=== PATIENT | female | born 1970 | race African-American/Black ===

== ENCOUNTER 2017-05-31 11:46 | Inpatient (IN) | payer OTHER ==
[2017-05-31 13:04] VITALS: BMI 38.9
--- NOTE | 2017-05-31 14:40 | HP ---
CIWA Score - CIWA Score Nausea/Vomitin-Mild Nausea/No Vomiting Muscle Tremors: 4-Moderate,w/Arms Extend Anxiety: 3 Agitation: 4-Moderately Restless Paroxysmal Sweats: 3 Orientation: 0-Oriented Tacttile Disturbances: 0-None Auditory Disturbances: 0-None Visual Disturbances: 0-None Headache: 1-Very Mild CIWA-Ar Total Score: 16 Admission ROS BHS - HPI Chief Complaint: I need to get off the alcohol. Allergies/Adverse Reactions: Allergies Allergy/AdvReac Type Severity Reaction Status Date / Time No Known Allergies Allergy Verified 05/31/17 13:26 History of Present Illness: pt is a 46yr old female with a history of alcohol dependence seeking detox for treatment. Exam Limitations: No Limitations - Ebola screening Have you traveled outside of the country in the last 21 days: No Have you had contact with anyone from an Ebola affected area: No Have you been sick,other than usual withdrawal symptoms: No Do you have a fever: No - Review of Systems Constitutional: Diaphoresis, Loss of Appetite, Night Sweats, Changes in sleep EENT: reports: Tearing Respiratory: reports: No Symptoms reported Cardiac: reports: No Symptoms Reported, Syncope GI: reports: Nausea, Indigestion, Other (anal hemrroids.) : reports: No Symptoms Reported Musculoskeletal: reports: No Symptoms Reported Integumentary: reports: Flushing, Sweating Neuro: reports: Headache, Tingling, Tremors Endocrine: reports: Excessive Sweating, Flushing, Intolerance to Cold, Intolerance to Heat Hematology: reports: No Symptoms Reported Psychiatric: reports: Judgement Intact, Orientated x3, Agitated, Anxious Other Systems: Reviewed and Negative Patient History - Patient Medical History Hx Anemia: Yes (maybe d/t gastric bypass) Hx Asthma: Yes Hx Chronic Obstructive Pulmonary Disease (COPD): No Hx Cancer: No Hx Cardiac Disorders: No Hx Congestive Heart Failure: No Hx Hypertension: Yes Hx Hypercholesterolemia: No Hx Pacemaker: No HX Cerebrovascular Accident: No Hx Seizures: No Hx Dementia: No Hx Diabetes: No Hx Gastrointestinal Disorders: No Hx Liver Disease: No Hx Genitourinary Disorders: No Hx Sexually Transmitted Disorders: No Hx Renal Disease (ESRD): No Hx Thyroid Disease: No Hx Human Immunodeficiency Virus (HIV): No (negative) Hx Hepatitis C: No (negative) Hx Depression: Yes Hx Suicide Attempt: No (denies) Hx Bipolar Disorder: No Hx Schizophrenia: No - Patient Surgical History Past Surgical History: Yes Hx Abdominal Surgery: Yes (gastric bypass-2009) - PPD History Previous Implant?: Yes Documented Results: Negative w/o proof Implanted On Prior R Admission?: No PPD to be Administered?: Yes - Reproductive History Patient is a Female of Child Bearing Age (11 -55 yrs old): No LMP comment: 2016 Patient : No - Smoking Cessation Smoking history: Never smoked Have you smoked in the past 12 months: No Hx Chewing Tobacco Use: No Initiated information on smoking cessation: No - Substance & Tx. History Hx Alcohol Use: Yes Hx Substance Use: No Substance Use Type: Alcohol Hx Substance Use Treatment: Yes (last detox at [place] 2015) - Substances Abused Alcohol Route: Oral Frequency: Daily Amount used: vodka(1-2 liter) Age of first use: 15 Date of Last Use: 05/31/17 Family Disease History - Family Disease History Family History: Denies Admission Physical Exam S - Vital Signs Vital Signs: Vital Signs - 24 hr 05/31/17 13:03 Temperature 98.2 F Pulse Rate 79 Respiratory 19 Rate Blood Pressure 142/96 - Physical General Appearance: Yes: Appropriately Dressed, Moderate Distress, Tremorous, Irritable, Sweating, Anxious HEENTM: Yes: Normal Voice, Nasal Congestion Respiratory: Yes: Lungs Clear, Normal Breath Sounds, No Respiratory Distress Neck: Yes: No masses,lesions,Nodules Breast: Yes: Within Normal Limits Cardiology: Yes: Regular Rhythm, Regular Rate, S1, S2 Abdominal: Yes: Normal Bowel Sounds, Non Tender, Soft Genitourinary: Yes: Within Normal Limits Back: Yes: Normal Inspection Musculoskeletal: Yes: full range of Motion Extremities: Yes: Normal Capillary Refill Neurological: Yes: Fully Oriented, Alert, Normal Response Integumentary: Yes: Normal Color Lymphatic: Yes: Within Normal Limits - Diagnostic (1) Alcohol dependence with uncomplicated withdrawal Current Visit: Yes Status: Chronic (2) Hypertension Current Visit: Yes Status: Chronic Qualifiers: Hypertension type: essential hypertension Qualified Code(s): I10 - Essential (primary) hypertension (3) H/O gastric bypass Current Visit: No Status: Chronic (4) Hyperlipidemia Current Visit: Yes Status: Chronic Qualifiers: Hyperlipidemia type: pure hypercholesterolemia Qualified Code(s): E78.00 - Pure hypercholesterolemia, unspecified; E78.0 - Pure hypercholesterolemia (5) Asthma Current Visit: Yes Status: Chronic Qualifiers: Asthma severity: mild intermittent Asthma complication type: uncomplicated Qualified Code(s): J45.20 - Mild intermittent asthma, uncomplicated Cleared for Admission BHS - Detox or Rehab [facility] Level of Care: Medically Managed Detox Regimen/Protocol: Librium BHS Breath Alcohol Content Breath Alcohol Content: 0 Urine Pregancy Test - Result Urine Test Results: Negative- NO Line Present Urine Drug Screen - Results Drug Screen Negative: Yes
[2017-05-31] MEDS ORDERED: MAG HYDROX/AL HYDROX/SIMETH 30 ML UNIT-DOSE CUP PO PRN (14:47)
[2017-05-31] MEDS ORDERED: P-EPHED 60MG/TRIPROLIDI 2.5MG TABLET PO PRN (14:47)
[2017-05-31] MEDS ORDERED: ACETAMINOPHEN 325 MG TABLET (FP) PO PRN (14:47)
[2017-05-31] MEDS ORDERED: MENTHOL/PHENOL 1 EACH UD MM PRN (14:47)
[2017-05-31] MEDS ORDERED: chlordiazePOXIDE HCL 25 MG CAPSULE PO PRN (14:47)
[2017-05-31] MEDS ORDERED: MAGNESIUM HYDROX 2400MG/30ML ORAL SUSPENSION 30 ML CUP PO PRN (14:47)
[2017-05-31] MEDS ORDERED: MAGNESIUM CITRATE 300 ML BOTTLE PO PRN (14:47)
[2017-05-31] MEDS ORDERED: IBUPROFEN 400 MG TABLET (FP) PO PRN (14:47)
[2017-05-31] MEDS ORDERED: guaiFENesin/D-METHORPHAN HB 10 ML UNIT-DOSE CUPS PO PRN (14:47)
[2017-05-31] MEDS ORDERED: LOPERAMIDE HCL 2 MG CAPSULE PO PRN (14:47)
[2017-05-31] MEDS ORDERED: hydrOXYzine PAMOATE 50 MG CAPSULE (FP) PO PRN (14:47)
[2017-05-31] MEDS ORDERED: ALBUTEROL SO4 6.7 GM HFA INHALER IH PRN (14:49)
[2017-05-31] MEDS ORDERED: chlordiazePOXIDE HCL 25 MG CAPSULE PO ONE (15:53)
[2017-05-31 17:02] LABS: MCH 33.2 pg (25.7-33.7); MEAN CELL VOLUME 100.5 fl (80-96); MEAN PLT VOLUME 9.7 fl (7.5-11.1); PLATELET COUNT 202 K/MM3 (134-434); RDW 16.6 % (11.6-15.6); WHITE BLOOD COUNT 4.3 K/mm3 (4.0-10.0)
[2017-05-31 17:08] LABS: URINE APPEARANCE SLCLOUDY; URINE BLOOD NEGATIVE (NEGATIVE); URINE COLOR AMBER; URINE GLUCOSE (UA) NEGATIVE (NEGATIVE); URINE KETONE 1+ (NEGATIVE); URINE LEUK ESTERASE NEGATIVE (NEGATIVE); URINE NITRITE NEGATIVE (NEGATIVE); URINE UROBILINOGEN 4.0 E.U/dl mg/dL (0.2-1.0)
[2017-05-31] MEDS: chlordiazePOXIDE HCL 25 MG CAPSULE PO SCH ×2 (17:14→22:09)
[2017-05-31 17:16] LABS: URINE PROTEIN 2+ (NEGATIVE)
[2017-05-31 17:23] LABS: URINE BACTERIA RARE /hpf (NONE SEEN); URINE HYALINE CAST 6 /lpf; URINE MUCUS MANY; URINE RBC 3 /hpf (0-3); URINE WBC 3 /hpf (3-5)
[2017-05-31 17:24] LABS: ALBUMIN 4.2 g/dl (3.4-5.0); ANION GAP 16 (8-16); CALCIUM 9.8 mg/dL (8.5-10.1); CO2 23 mmol/L (21-32); GLUCOSE,RANDOM 97 mg/dL (74-106)
[2017-05-31 17:27] LABS: ALK PHOS 208 U/L (45-117); BILIRUBIN,TOTAL 2.2 mg/dL (0.2-1.0); CREATININE 0.9 mg/dL (0.55-1.02); SGPT/ALT 135 U/L (12-78); TOT PROT 7.9 g/dl (6.4-8.2)
[2017-05-31 17:35] LABS: SGOT/AST 426 U/L (15-37)
[2017-05-31] MEDS: diphenhydrAMINE HCL 50 MG CAPSULE PO PRN (22:10)
[2017-05-31] MEDS: THIAMINE HCL 100 MG TABLET (FP) PO SCH (22:10)
[2017-06-01] MEDS: chlordiazePOXIDE HCL 25 MG CAPSULE PO SCH ×4 (05:36→22:10)
--- NOTE | 2017-06-01 08:31 | CONSULT ---
[facility] Psychiatric Consult - Data Date of interview: 06/01/17 Admission source: [facility] Identifying data: This is 46 years old female with no psychiatric hospitalization history intoxicated with: Alcohol Substance Abuse History: - Smoking Cessation. Smoking history: Never smoked. Have you smoked in the past 12 months: No. Hx Chewing Tobacco Use: No. Initiated information on smoking cessation: No. - Substance & Tx. History. Hx Alcohol Use: Yes. Hx Substance Use: No. Substance Use Type: Alcohol. Hx Substance Use Treatment: Yes (last detox at [place] 2015). - Substances Abused. Alcohol. Route: Oral. Frequency: Daily. Amount used: vodka(1-2 liter). Age of first use: 15. Date of Last Use: 05/31/17 Medical History: Asthma, Hyperlipidemia, HTN, Gastric Bypass Hisotry on 2009 Psychiatric History: Denies Physical/Sexual Abuse/Trauma History: Denies Additional Comment: Observation. Detox Unit Care Protocol Mental Status Exam - Mental Status Exam Alert and Oriented to: Person Cognitive Function: Fair Patient Appearance: Unkempt Mood: Sad Affect: Flat Patient Behavior: Sedated Speech Pattern: Delayed Voice Loudness: Mildly Soft/Quiet Thought Process: Circumstantial Thought Disorder: Being Controlled Hallucinations: Denies Suicidal Ideation: Denies Homicidal Ideation: Denies Insight/Judgement: Fair Sleep: Difficulty falling asleep Appetite: Weight gain Muscle strength/Tone: Mild Hypotonicity Gait/Station: Shuffling Additional Comments: Observation. Detox Unit Care Protocol Psychiatric Findings - Problem List (Sieper 1, 2,3) (1) Alcohol dependence with uncomplicated withdrawal Current Visit: Yes Status: Chronic (2) Alcohol induced insomnia Current Visit: Yes Status: Acute (3) Alcohol-induced mood disorder Current Visit: Yes Status: Suspected - Initial Treatment Plan Initial Treatment Plan: Observation. Detox Unit Care Protocol
--- NOTE | 2017-06-01 09:23 | PN ---
S CIWA - CIWA Score Nausea/Vomitin Muscle Tremors: 4-Moderate,w/Arms Extend Anxiety: 4-Mod. Anxious/Guarded Agitation: 4-Moderately Restless Paroxysmal Sweats: 3 Orientation: 0-Oriented Tacttile Disturbances: 1-Very Mild Itch/Numbness Auditory Disturbances: 0-None Visual Disturbances: 0-None Headache: 1-Very Mild CIWA-Ar Total Score: 20 BHS Progress Note (SOAP) Subjective: nausea, sweats, interrupted sleep, anxiety, tremors Objective: 06/01/17 09:21 Vital Signs - 24 hr 05/31/17 05/31/17 05/31/17 13:03 18:10 23:00 Temperature 98.2 F 98.8 F 99.1 F Pulse Rate 79 96 H 113 H Respiratory 19 20 18 Rate Blood Pressure 142/96 126/97 142/101 06/01/17 06/01/17 06/01/17 00:30 03:47 06:41 Temperature 97.5 F L Pulse Rate 79 Respiratory 18 18 18 Rate Blood Pressure 139/90 Laboratory Tests 05/31/17 05/31/17 05/31/17 15:00 15:00 15:00 WBC 4.3 RBC 3.70 Hgb 12.3 Hct 37.2 MCV 100.5 H MCH 33.2 MCHC 33.0 RDW 16.6 H Plt Count 202 MPV 9.7 Sodium 135 L Potassium 3.7 Chloride 96 L Carbon Dioxide 23 Anion Gap 16 BUN 7 Creatinine 0.9 Creat Clearance w eGFR > 60 Random Glucose 97 Calcium 9.8 Total Bilirubin 2.2 H AST 426 H ALT 135 H Alkaline Phosphatase 208 H Total Protein 7.9 Albumin 4.2 Urine Color Urine Appearance Urine pH Ur Specific [place] Urine Protein Urine Glucose (UA) Urine Ketones Urine Blood Urine Nitrite Urine Bilirubin Urine Urobilinogen Urine RBC Urine WBC Ur Epithelial Cells Urine Bacteria Hyaline Casts Urine Mucus RPR Titer Nonreactive 05/31/17 15:00 WBC RBC Hgb Hct MCV MCH MCHC RDW Plt Count MPV Sodium Potassium Chloride Carbon Dioxide Anion Gap BUN Creatinine Creat Clearance w eGFR Random Glucose Calcium Total Bilirubin AST ALT Alkaline Phosphatase Total Protein Albumin Urine Color Dior Urine Appearance Slcloudy Urine pH 5.0 Ur Specific [place] >= 1.030 H Urine Protein 2+ H Urine Glucose (UA) Negative Urine Ketones 1+ H Urine Blood Negative Urine Nitrite Negative Urine Bilirubin 4.0 Urine Urobilinogen 4.0 e.u/dl H Urine RBC 3 Urine WBC 3 Ur Epithelial Cells Few Urine Bacteria Rare Hyaline Casts 6 Urine Mucus Many RPR Titer Assessment: 06/01/17 09:22 withdrawal sx Plan: cont detox
[2017-06-01] MEDS ORDERED: PRENATAL VITAMINS W/ FOLIC ACID TABLET (FP) PO SCH (10:00)
[2017-06-01] MEDS: ASPIRIN 81 MG CHEWABLE TABLETS PO SCH (10:23)
[2017-06-01] MEDS: amLODIPine BESYLATE 10 MG TABLET (FP) PO SCH (10:23)
[2017-06-01] MEDS: PANTOPRAZOLE 40 MG TABLET (FP) PO SCH (10:23)
[2017-06-01] MEDS: ATORVASTATIN CA 10 MG TABLET (FP) PO SCH (10:23)
--- NOTE | 2017-06-01 13:25 | EKG ---
Test Reason : Blood Pressure : / mmHG Vent. Rate : 075 BPM Atrial Rate : 075 BPM P-R Int : 136 ms QRS Dur : 086 ms QT Int : 426 ms P-R-T Axes : 042 024 026 degrees QTc Int : 475 ms NORMAL SINUS RHYTHM Confirmed by ABISAI COLORADO MD (2013) on 06/01/2017 1:24:45 PM Referred By: Luis Eduardo Allison Confirmed By:ABISAI COLORADO MD
[2017-06-01] MEDS: diphenhydrAMINE HCL 50 MG CAPSULE PO PRN (22:10)
[2017-06-01] MEDS: THIAMINE HCL 100 MG TABLET (FP) PO SCH (22:10)
[2017-06-02] MEDS: chlordiazePOXIDE HCL 25 MG CAPSULE PO SCH ×2 (05:12→11:47)
--- NOTE | 2017-06-02 09:21 | PN ---
BHS Progress Note Note: pt c/o of epigastric pain P/S 12. V/S 114/72 pulse 123 temp 100.0 pt assessed +BS all four quadrants, tender to touch on palpitation. pt states mylanta and protonic did not help. Dr. Madrigal was informed for evaluation at [facility] [place].
[2017-06-02 09:31] VITALS: BP 114/72; PULSE 123; TEMP 100
--- NOTE | 2017-06-02 09:58 | PN ---
S CIWA - CIWA Score Nausea/Vomitin-Int. Nausea w/Dry Heave Muscle Tremors: 3 Anxiety: 4-Mod. Anxious/Guarded Agitation: 4-Moderately Restless Paroxysmal Sweats: 3 Orientation: 0-Oriented Tacttile Disturbances: 0-None Auditory Disturbances: 0-None Visual Disturbances: 0-None Headache: 0-None Present CIWA-Ar Total Score: 18 BHS Progress Note (SOAP) Subjective: nausea, sweats, interrupted sleep, anxiety c/o epigastric pain, burning in antrue unrelieved by antacids and protonix. Objective: 06/02/17 09:55 Vital Signs - 24 hr 06/01/17 06/01/17 06/01/17 12:57 18:56 21:58 Temperature 99.3 F 98.4 F 98.4 F Pulse Rate 107 H 91 H 90 Respiratory 16 20 18 Rate Blood Pressure 116/73 116/76 103/67 06/02/17 06/02/17 06/02/17 01:00 03:30 06:00 Temperature 98.1 F Pulse Rate 77 Respiratory 18 18 18 Rate Blood Pressure 130/92 06/02/17 09:31 Temperature 100 F H Pulse Rate 123 H Respiratory 18 Rate Blood Pressure 114/72 Laboratory Tests 05/31/17 05/31/17 05/31/17 15:00 15:00 15:00 WBC 4.3 RBC 3.70 Hgb 12.3 Hct 37.2 MCV 100.5 H MCH 33.2 MCHC 33.0 RDW 16.6 H Plt Count 202 MPV 9.7 Sodium 135 L Potassium 3.7 Chloride 96 L Carbon Dioxide 23 Anion Gap 16 BUN 7 Creatinine 0.9 Creat Clearance w eGFR > 60 Random Glucose 97 Calcium 9.8 Total Bilirubin 2.2 H AST 426 H ALT 135 H Alkaline Phosphatase 208 H Total Protein 7.9 Albumin 4.2 Urine Color Urine Appearance Urine pH Ur Specific [place] Urine Protein Urine Glucose (UA) Urine Ketones Urine Blood Urine Nitrite Urine Bilirubin Urine Urobilinogen Urine RBC Urine WBC Ur Epithelial Cells Urine Bacteria Hyaline Casts Urine Mucus RPR Titer Nonreactive 05/31/17 15:00 WBC RBC Hgb Hct MCV MCH MCHC RDW Plt Count MPV Sodium Potassium Chloride Carbon Dioxide Anion Gap BUN Creatinine Creat Clearance w eGFR Random Glucose Calcium Total Bilirubin AST ALT Alkaline Phosphatase Total Protein Albumin Urine Color Dior Urine Appearance Slcloudy Urine pH 5.0 Ur Specific [place] >= 1.030 H Urine Protein 2+ H Urine Glucose (UA) Negative Urine Ketones 1+ H Urine Blood Negative Urine Nitrite Negative Urine Bilirubin 4.0 Urine Urobilinogen 4.0 e.u/dl H Urine RBC 3 Urine WBC 3 Ur Epithelial Cells Few Urine Bacteria Rare Hyaline Casts 6 Urine Mucus Many RPR Titer abdo soft bs hyperactive, tender on palpation, epigastric region, elevated LFTs Assessment: 06/02/17 09:56 withdrawal sx, hepatitis, r/o gastritis vs pancreatitis Plan: cont detox, evaluate gabino ed, notified of transfer, repeat labs in am, check lipase, aylase
[2017-06-02] MEDS: ATORVASTATIN CA 10 MG TABLET (FP) PO SCH (11:47)
[2017-06-02] MEDS: ASPIRIN 81 MG CHEWABLE TABLETS PO SCH (11:47)
[2017-06-02] MEDS: amLODIPine BESYLATE 10 MG TABLET (FP) PO SCH (11:47)
[2017-06-02] MEDS: PANTOPRAZOLE 40 MG TABLET (FP) PO SCH (11:47)
[2017-06-02] MEDS: chlordiazePOXIDE 5 MG CAPSULE PO SCH ×2 (18:05→19:57)
[2017-06-03] MEDS ORDERED: chlordiazePOXIDE HCL 10 MG CAPSULE PO SCH (17:00)
== END 2017-06-02 23:13 | disposition short-term general hospital (02) | DRG 775 ==
LOC: YASAS 11:46 → Y6N 14:58
PROVIDERS: ADMIT Internal Medicine; ATTEND Internal Medicine
PROC: HZ2ZZZZ Detoxification Services for Substance Abuse Treatment (ICD-10-PCS; principal; 2017-05-31)
DX: F10.230 Alcohol dependence with withdrawal, uncomplicated (principal); F10.24 Alcohol dependence with alcohol-induced mood disorder; F10.282 Alcohol dependence with alcohol-induced sleep disorder
CPT/HCPCS: 36415; 80053; 81003; 81015; 85027; 86593; 93005; 93010

== ENCOUNTER 2017-06-02 10:14 | Inpatient (IN) | payer OTHER ==
--- NOTE | 2017-06-02 10:19 | PDOC ---
History of Present Illness - General History Source: Patient Exam Limitations: No Limitations - History of Present Illness Initial Comments: 06/02/17 14:16 The patient is a 46 year old female, with a significant past medical history of EtOH abuse, HTN, HLD, myositis, interstitial lung disease, and asthma who presents to the emergency department sent from [facility] with epigastric pain and diffuse abdominal pain. Patient states that the pain has been intermittent for few months but has become constant since 5 PM last night, she describes the pain as knots, exacerbated by positional movements, 12/10 in severity, she denies exacerbation by food. Patient notes that the pain radiates to the left flank. She reports associated vomiting, 2-3 watery non bloody episodes per day. She reports normal bowel movements with orange jelly at the end of the movement. She reports decreased appetite. LMP 1 year ago. She denies shortness of breath, CP She denies fever, chills, headache and dizziness. She denies nausea, diarrhea and constipation. She denies dysuria, frequency, urgency and hematuria. She denies any travel hx. She denies any recent falls or trauma. PSH - gastric bypass 2009 SH - EtOH abuse (more than 1 liter of vodka per day for 1 yr) started detox on PCP: none <Juana Mukherjee - Last Filed: 06/02/17 16:59> <Brendan Padron - Last Filed: 06/02/17 17:27> - General Chief Complaint: Pain Stated Complaint: ABD PAIN Time Seen by Provider: 06/02/17 10:19 Past History <Juana Mukherjee - Last Filed: 06/02/17 16:59> - Past Medical History Anemia: Yes (maybe d/t gastric bypass) Asthma: Yes Cancer: No Cardiac Disorders: No CVA: No COPD: No CHF: No Dementia: No Diabetes: No GI Disorders: No Disorders: No HTN: Yes Hypercholesterolemia: No Kidney Stones: No Liver Disease: No Suicide Attempt (Hx): No (denies) Seizures: No Thyroid Disease: No - Surgical History Abdominal Surgery: Yes (gastric bypass-2009) - Reproductive History PID: No - Psycho/Social/Smoking Cessation Hx Anxiety: No Suicidal Ideation: No Smoking History: Never smoked Have you smoked in the past 12 months: No Hx Alcohol Use: Yes Drug/Substance Use Hx: No Substance Use Type: Alcohol Hx Substance Use Treatment: Yes (last detox at [place] 2015) <Brendan Padron - Last Filed: 06/02/17 17:27> - Past Medical History Allergies/Adverse Reactions: Allergies Allergy/AdvReac Type Severity Reaction Status Date / Time No Known Allergies Allergy Verified 05/31/17 13:26 Home Medications: Ambulatory Orders Albuterol Sulfate Inhaler - [Ventolin Hfa Inhaler -] 1 - 2 inh PO QID PRN Amlodipine Besylate [Norvasc -] 10 mg PO DAILY 05/31/17 Aspirin [ASA -] 81 mg PO DAILY 05/31/17 Atorvastatin Ca [Lipitor] 10 mg PO DAILY 05/31/17 Vit B1/B2/B6/FA/Mecobalamin [Methaver 109 mg Capsule] 1 each PO DAILY 05/31/17 Acetaminophen [Tylenol] 650 mg PO PRN PRN 06/02/17 Amlodipine Besylate [Norvasc -] 10 mg PO DAILY 06/02/17 Chlordiazepoxide [Librium -] 10 mg PO Q6H 06/02/17 Chlordiazepoxide [Librium -] 15 mg PO Q6H 06/02/17 Chlordiazepoxide [Librium -] 25 mg PO PRN PRN 06/02/17 Chlordiazepoxide [Librium -] 25 mg PO Q6H 06/02/17 Chlordiazepoxide [Librium -] 50 mg PO Q6H 06/02/17 Dextromethorphan HBr [Robitussin] 10 ml PO PRN PRN 06/02/17 Diphenhydramine [Benadryl -] 50 mg PO PRN 06/02/17 Hydroxyzine Pamoate [Vistaril -] 50 mg PO PRN 06/02/17 Ibuprofen [Motrin -] 400 mg PO Q4HWA PRN 06/02/17 Loperamide HCl [Imodium -] 4 mg PO PRN PRN 06/02/17 Mag Hydrox/Al Hydrox/Simeth [Mylanta *Suspension*] 30 ml PO Q6H PRN 06/02/17 Magnesium Citrate [Citroma] 300 ml PO PRN PRN 06/02/17 Menthol/Phenol [Cepastat Lozenge -] 1 each MM PRN 06/02/17 Pantoprazole Sodium [Protonix] 40 mg PO DAILY 06/02/17 Vit Calc,Iron,Folic [ Vitamins] 1 each PO DAILY 06/02/17 Review of Systems - Review of Systems Able to Perform ROS?: Yes Comments:: 06/02/17 14:17 GENERAL/CONSTITUTIONAL: No fever or chills. No weakness. HEAD, EYES, EARS, NOSE AND THROAT: No change in vision. No ear pain or discharge. No sore throat. GASTROINTESTINAL: +abdominal pain, +vomiting. No nausea, diarrhea or constipation. GENITOURINARY: No dysuria, frequency, or change in urination. CARDIOVASCULAR: No chest pain or shortness of breath. RESPIRATORY: No cough, wheezing, or hemoptysis. MUSCULOSKELETAL: No joint or muscle swelling or pain. No neck or back pain. SKIN: No rash NEUROLOGIC: No headache, vertigo, loss of consciousness, or change in strength/ sensation. ENDOCRINE: No increased thirst. No abnormal weight change. HEMATOLOGIC/LYMPHATIC: No anemia, easy bleeding, or history of blood clots. ALLERGIC/IMMUNOLOGIC: No hives or skin allergy. <Juana Mukherjee - Last Filed: 06/02/17 16:59> *Physical Exam - Vital Signs Last Vital Signs Temp Pulse Resp BP Pulse Ox 98.6 F 80 18 130/79 96 06/02/17 10:18 06/02/17 10:18 06/02/17 10:18 06/02/17 10:18 06/02/17 10:18 - Physical Exam Comments: 06/02/17 14:17 GENERAL: +Well appearing ambulating in ED. Awake, alert, and fully oriented, in no acute distress HEAD: No signs of trauma EYES: PERRLA, EOMI, mild scleral icterus, conjunctiva clear ENT: Auricles normal inspection, hearing grossly normal, nares patent, oropharynx clear without exudates. Moist mucosa NECK: Normal ROM, supple, no lymphadenopathy, JVD, or masses LUNGS: Breath sounds equal, clear to auscultation bilaterally. No wheezes, and no crackles HEART: Regular rate and rhythm, normal S1 and S2, no murmurs, rubs or gallops ABDOMEN: +Obese, +diffuse abdominal tenderness to palpation, worst in epigastric area. Soft, normoactive bowel sounds. No guarding, no rebound. No masses EXTREMITIES: Normal range of motion, no edema. No clubbing or cyanosis. No cords , erythema, or tenderness NEUROLOGICAL: Normal speech, cranial nerves intact, negative pronator drift, 5/ 5 strength in all 4 extremities, normal sensation to light touch in all 4 extremities, normal cerebellar exam, normal reflexes and tone SKIN: Warm, Dry, normal turgor, no rashes or lesions noted. <Juana Mukherjee - Last Filed: 06/02/17 16:59> ED Treatment Course - LABORATORY CBC & Chemistry Diagram: 06/02/17 11:00 06/02/17 13:17 - ADDITIONAL ORDERS Additional order review: Laboratory Results 06/02/17 06/02/17 06/02/17 14:01 11:45 11:39 Sodium 137 Potassium 3.8 Chloride 95 L Carbon Dioxide 29 D Anion Gap 13 BUN 5 L D Creatinine 0.6 D Creat Clearance w eGFR Random Glucose 137 H D Lactic Acid 1.9 Calcium 10.4 H Magnesium Total Bilirubin AST ALT Alkaline Phosphatase Creatine Kinase 98 Troponin I < 0.02 B-Natriuretic Peptide Total Protein Albumin Lipase Serum , Qual Negative 06/02/17 06/02/17 06/02/17 11:00 11:00 11:00 Sodium Cancelled Potassium Cancelled Chloride Cancelled Carbon Dioxide Cancelled Anion Gap Cancelled BUN Cancelled Creatinine Cancelled Creat Clearance w eGFR Cancelled Random Glucose Cancelled Lactic Acid Cancelled Calcium Cancelled Magnesium Cancelled Total Bilirubin Cancelled AST Cancelled ALT Cancelled Alkaline Phosphatase Cancelled Creatine Kinase Troponin I Cancelled B-Natriuretic Peptide Cancelled Cancelled Total Protein Cancelled Albumin Cancelled Lipase Cancelled Serum , Qual 06/02/17 11:00 RBC 3.66 MCV 99.7 H MCHC 32.9 RDW 16.4 H MPV 9.2 Neutrophils % 60.1 Lymphocytes % 26.6 Monocytes % 12.0 H Eosinophils % 0.6 Basophils % 0.7 - Medications Given in the ED: ED Medications Discontinued Medications Generic Name Dose Route Start Last Admin Trade Name Freq PRN Reason Stop Dose Admin Morphine Sulfate 2 mg 06/02/17 13:15 06/02/17 13:17 Morphine Injection - IVPUSH 06/02/17 13:16 2 mg ONCE ONE Administration <Juana Mukherjee - Last Filed: 06/02/17 16:59> - LABORATORY CBC & Chemistry Diagram: 06/02/17 11:00 06/02/17 13:17 <Brendan Padron - Last Filed: 06/02/17 17:27> Medical Decision Making - Medical Decision Making 06/02/17 16:59 A call was placed to Dr. Rai at his office. Awaiting a call back. <Juana Mukherjee - Last Filed: 06/02/17 16:59> - Medical Decision Making 06/02/17 17:21 46yo F hx etoh abuse, ILD, gastric bypass p/w diffuse abd pain, with epigastric ttp on exam. DDx includes pancreatitis vs cholecystitis vs colitis vs choledocolithiasis. Plan: -UPT -IVF -labs -pain control -CTAP w contrast -US -reassess 06/02/17 17:23 Labs with lipase 4000+ consistent with pancreatitis. CTAP with possible colitis but no other acute findings. US with steatosis but no acute findings. IVF started, pt made NPO, pain controlled with morphine and now admitted to Dr. Vasquez for further management. Case discussed in detail with admitting physician including history, physical exam and ancillary studies. Admitting physician has assumed care for the patient, will follow all pending diagnostics and will complete the evaluation and treatment. <Brendan Padron - Last Filed: 06/02/17 17:27> *DC/Admit/Observation/Transfer - Attestations Scribe Attestion: 06/02/17 14:17 Documentation prepared by SABA Rodarte, acting as medical representative for Brendan Padron MD. <Juana Mukherjee - Last Filed: 06/02/17 16:59> - Discharge Dispostion Admit: Yes - Attestations Physician Attestion: 06/02/17 17:27 I, Dr. Brendan Padron MD, attest that this document has been prepared under my direction and personally reviewed by me in its entirety. I further attest, that it accurately reflects all work, treatment, procedures and medical decision -making performed by me. <Brendan Padron - Last Filed: 06/02/17 17:27> Diagnosis at time of Disposition: Pancreatitis Qualifiers: Chronicity: acute Pancreatitis type: other Acute pancreatitis complication: unspecified Qualified Code(s): K85.80 - Other acute pancreatitis without necrosis or infection - Discharge Dispostion Condition at time of disposition: Stable
[2017-06-02 11:25] LABS: BASOPHIL 0.7 % (0-2.0); EOSINOPHIL 0.6 % (0-4.5); MCH 32.8 pg (25.7-33.7); MCHC 32.9 g/dl (32.0-36.0); MEAN CELL VOLUME 99.7 fl (80-96); MEAN PLT VOLUME 9.2 fl (7.5-11.1); NEUTROPHILS 60.1 % (42.8-82.8); PLATELET COUNT 203 K/MM3 (134-434); RDW 16.4 % (11.6-15.6)
[2017-06-02 12:21] LABS: ANION GAP 13 (8-16); CALCIUM 10.4 mg/dL (8.5-10.1); CO2 29 mmol/L (21-32); CREATININE 0.6 mg/dL (0.55-1.02); GLUCOSE,RANDOM 137 mg/dL (74-106)
[2017-06-02 12:23] LABS: CPK 98 IU/L (26-192); TROPONIN I < 0.02 ng/ml (0.00-0.05)
[2017-06-02] MEDS ORDERED: morphine CARPU-JECT 2 MG/1 ML DISP.SYRIN ONE (13:12)
[2017-06-02] MEDS ORDERED: morphine CARPU-JECT 4 MG/1 ML DISP.SYRIN IVPUSH ONE ×2 (13:15→16:52)
[2017-06-02] MEDS ORDERED: chlordiazePOXIDE HCL 25 MG CAPSULE PO ONE (14:08)
[2017-06-02] MEDS ORDERED: chlordiazePOXIDE HCL 25 MG CAPSULE ONE (15:00)
[2017-06-02 16:03] LABS: ALBUMIN 3.9 g/dl (3.4-5.0); ALK PHOS 169 U/L (45-117); ANION GAP 11 (8-16); BILIRUBIN,TOTAL 1.3 mg/dL (0.2-1.0); CALCIUM 9.8 mg/dL (8.5-10.1); CO2 30 mmol/L (21-32); CREATININE 0.6 mg/dL (0.55-1.02); GLUCOSE,RANDOM 120 mg/dL (74-106); SGOT/AST 235 U/L (15-37); SGPT/ALT 82 U/L (12-78); TOT PROT 7.3 g/dl (6.4-8.2)
[2017-06-02 16:05] LABS: CPK 99 IU/L (26-192); TROPONIN I < 0.02 ng/ml (0.00-0.05)
[2017-06-02 16:17] LABS: URINE APPEARANCE CLEAR; URINE BILIRUBIN NEGATIVE (NEGATIVE); URINE BLOOD NEGATIVE (NEGATIVE); URINE COLOR DKYELLOW; URINE GLUCOSE (UA) NEGATIVE (NEGATIVE); URINE KETONE NEGATIVE (NEGATIVE); URINE LEUK ESTERASE NEGATIVE (NEGATIVE); URINE NITRITE NEGATIVE (NEGATIVE); URINE PROTEIN NEGATIVE (NEGATIVE); URINE UROBILINOGEN 4.0 E.U/dl mg/dL (0.2-1.0)
[2017-06-02] MEDS ORDERED: SODIUM CHLORIDE 0.9% 500 ML INFUS.BAG IV ONE (16:52)
[2017-06-02] MEDS ORDERED: morphine CARPU-JECT 4 MG/1 ML DISP.SYRIN ONE (17:00)
[2017-06-02] MEDS ORDERED: chlordiazePOXIDE HCL 25 MG CAPSULE PO PRN (17:51)
[2017-06-02] MEDS ORDERED: morphine CARPU-JECT 2 MG/1 ML DISP.SYRIN IVPUSH PRN ×2 (17:53→19:14)
[2017-06-02] MEDS ORDERED: MENTHOL/PHENOL 1 EACH UD MM PRN (17:59)
[2017-06-02] MEDS ORDERED: ACETAMINOPHEN 325 MG TABLET (FP) PO PRN (17:59)
[2017-06-02] MEDS ORDERED: ALBUTEROL SO4 6.7 GM HFA INHALER IH PRN (17:59)
[2017-06-02] MEDS ORDERED: SODIUM CHLORIDE 1,000 ML IV SCH (18:00)
[2017-06-02 18:18] VITALS: TEMP 98.4
[2017-06-02] MEDS: chlordiazePOXIDE 5 MG CAPSULE PO SCH ×2 (18:18→23:13)
--- NOTE | 2017-06-02 18:24 | HP ---
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 Patient states shes had this pain on and off for about 6 months but yesterday in the evening she started to have an acute flair of her abdominal pain. She states the pain is 12/10 and constant. She has also had some vomiting which was non blood and non bilious. She states the vomitus was clear as she has not been able to eat anything since she has no appetite recently. The pain radiates to bilateral flanks L>R. LMP 1 year ago currently has hot flashes from menopause. Denies fevers chills chest pain shortness of breath or any urinary symptoms Patient endorses an orage jello looking substance per rectum after bowel movements occasionally. Denies bright red blood per rectum. Denies headache dizziness lightheadedness or visual changes. History Source: Patient, Medical Record Limitations to Obtaining History: Poor Historian - Past Medical History Additional Past Medical History: as above possible CAD patient believes she was told she had something wrong with the arteries going to her heart in the past and was stared on aspirin - Past Surgical History Past Surgical History: Yes: Bariatric Surgery (gastric bypass) - Smoking History Smoking history: Former smoker Have you smoked in the past 12 months: No - Alcohol/Substance Use Hx Alcohol Use: Yes (1 liter of liquor or more per day) History of Substance Use: reports: None Home Medications - Allergies Allergies/Adverse Reactions: Allergies Allergy/AdvReac Type Severity Reaction Status Date / Time No Known Allergies Allergy Verified 05/31/17 13:26 - Home Medications Home Medications: Ambulatory Orders Albuterol Sulfate Inhaler - [Ventolin Hfa Inhaler -] 1 - 2 inh PO QID PRN Amlodipine Besylate [Norvasc -] 10 mg PO DAILY 05/31/17 Aspirin [ASA -] 81 mg PO DAILY 05/31/17 Atorvastatin Ca [Lipitor] 10 mg PO DAILY 05/31/17 Vit B1/B2/B6/FA/Mecobalamin [Methaver 109 mg Capsule] 1 each PO DAILY 05/31/17 Acetaminophen [Tylenol] 650 mg PO PRN PRN 06/02/17 Amlodipine Besylate [Norvasc -] 10 mg PO DAILY 06/02/17 Chlordiazepoxide [Librium -] 10 mg PO Q6H 06/02/17 Chlordiazepoxide [Librium -] 15 mg PO Q6H 06/02/17 Chlordiazepoxide [Librium -] 25 mg PO PRN PRN 06/02/17 Chlordiazepoxide [Librium -] 25 mg PO Q6H 06/02/17 Chlordiazepoxide [Librium -] 50 mg PO Q6H 06/02/17 Dextromethorphan HBr [Robitussin] 10 ml PO PRN PRN 06/02/17 Diphenhydramine [Benadryl -] 50 mg PO PRN 06/02/17 Hydroxyzine Pamoate [Vistaril -] 50 mg PO PRN 06/02/17 Ibuprofen [Motrin -] 400 mg PO Q4HWA PRN 06/02/17 Loperamide HCl [Imodium -] 4 mg PO PRN PRN 06/02/17 Mag Hydrox/Al Hydrox/Simeth [Mylanta *Suspension*] 30 ml PO Q6H PRN 06/02/17 Magnesium Citrate [Citroma] 300 ml PO PRN PRN 06/02/17 Menthol/Phenol [Cepastat Lozenge -] 1 each MM PRN 06/02/17 Pantoprazole Sodium [Protonix] 40 mg PO DAILY 06/02/17 Vit Calc,Iron,Folic [ Vitamins] 1 each PO DAILY 06/02/17 Review of Systems - Review of Systems Constitutional: reports: Loss of Appetite Gastrointestinal: reports: Abdominal Pain, Nausea, Vomiting Integumentary: reports: No Symptoms Neurological: reports: No Symptoms Psychiatric: reports: Anxiety Physical Examination Vital Signs: Vital Signs Temperature 98.4 F 06/02/17 18:17 Pulse Rate 78 06/02/17 18:17 Respiratory Rate 18 06/02/17 18:17 Blood Pressure 134/89 06/02/17 18:17 O2 Sat by Pulse Oximetry (%) 98 06/02/17 18:17 Constitutional: Yes: No Distress, Obese Eyes: Yes: Conjunctiva Clear. No: Sclera Icterus HENT: Yes: Atraumatic, Normocephalic Neck: Yes: Supple, Trachea Midline Cardiovascular: Yes: Regular Rate and Rhythm, S1, S2. No: Murmur Respiratory: Yes: Regular, CTA Bilaterally. No: Wheezes Gastrointestinal: Yes: Normal Bowel Sounds, Soft, Abdomen, Obese, Tenderness ( diffuse), Tenderness, Epigastrium ...Rectal Exam: Yes: Other (good rectal tone yellow stool on glove no evidence of blood) Edema: No Peripheral Pulses WNL: Yes Peripheral Pulses: Left Doralis Pedis: 2+, Right Dorsalis Pedis: 2+ Integumentary: Yes: WNL Neurological: Yes: Alert, Oriented Psychiatric: Yes: Alert, Oriented Labs: CBC, BMP 06/02/17 11:00 06/02/17 13:17 Laboratory Tests 06/02/17 06/02/17 06/02/17 11:00 11:00 11:00 WBC 4.0 RBC 3.66 Hgb 12.0 Hct 36.5 MCV 99.7 H MCH 32.8 MCHC 32.9 RDW 16.4 H Plt Count 203 MPV 9.2 Neutrophils % 60.1 Lymphocytes % 26.6 Monocytes % 12.0 H Eosinophils % 0.6 Basophils % 0.7 Sodium Cancelled Potassium Cancelled Chloride Cancelled Carbon Dioxide Cancelled Anion Gap Cancelled BUN Cancelled Creatinine Cancelled Creat Clearance w eGFR Cancelled Random Glucose Cancelled Lactic Acid Calcium Cancelled Magnesium Cancelled Total Bilirubin Cancelled AST Cancelled ALT Cancelled Alkaline Phosphatase Cancelled Creatine Kinase Troponin I Cancelled B-Natriuretic Peptide Cancelled Cancelled Total Protein Cancelled Albumin Cancelled Lipase Cancelled Serum , Qual Urine Color Urine Appearance Urine pH Urine Protein Urine Glucose (UA) Urine Ketones Urine Blood Urine Nitrite Urine Bilirubin Urine Urobilinogen 06/02/17 06/02/17 06/02/17 11:00 11:11 11:39 WBC RBC Hgb Hct MCV MCH MCHC RDW Plt Count MPV Neutrophils % Lymphocytes % Monocytes % Eosinophils % Basophils % Sodium Potassium Chloride Carbon Dioxide Anion Gap BUN Creatinine Creat Clearance w eGFR Random Glucose Lactic Acid Cancelled 1.9 Calcium Magnesium Total Bilirubin AST ALT Alkaline Phosphatase Creatine Kinase Troponin I B-Natriuretic Peptide Total Protein Albumin Lipase Serum , Qual Urine Color Dkyellow Urine Appearance Clear Urine pH 8.0 D Urine Protein Negative Urine Glucose (UA) Negative Urine Ketones Negative Urine Blood Negative Urine Nitrite Negative Urine Bilirubin Negative Urine Urobilinogen 4.0 e.u/dl H 06/02/17 06/02/17 06/02/17 11:45 13:17 13:17 WBC RBC Hgb Hct MCV MCH MCHC RDW Plt Count MPV Neutrophils % Lymphocytes % Monocytes % Eosinophils % Basophils % Sodium 137 136 Potassium 3.8 3.8 Chloride 95 L 95 L Carbon Dioxide 29 D 30 Anion Gap 13 11 BUN 5 L D 4 L Creatinine 0.6 D 0.6 Creat Clearance w eGFR > 60 Random Glucose 137 H D 120 H Lactic Acid Calcium 10.4 H 9.8 Magnesium Total Bilirubin 1.3 H D AST 235 H D ALT 82 H D Alkaline Phosphatase 169 H Creatine Kinase 98 99 Troponin I < 0.02 < 0.02 B-Natriuretic Peptide Total Protein 7.3 Albumin 3.9 Lipase Serum , Qual Urine Color Urine Appearance Urine pH Urine Protein Urine Glucose (UA) Urine Ketones Urine Blood Urine Nitrite Urine Bilirubin Urine Urobilinogen 06/02/17 06/02/17 13:17 14:01 WBC RBC Hgb Hct MCV MCH MCHC RDW Plt Count MPV Neutrophils % Lymphocytes % Monocytes % Eosinophils % Basophils % Sodium Potassium Chloride Carbon Dioxide Anion Gap BUN Creatinine Creat Clearance w eGFR Random Glucose Lactic Acid Calcium Magnesium Total Bilirubin AST ALT Alkaline Phosphatase Creatine Kinase Troponin I B-Natriuretic Peptide Total Protein Albumin Lipase 4618 H Serum , Qual Negative Urine Color Urine Appearance Urine pH Urine Protein Urine Glucose (UA) Urine Ketones Urine Blood Urine Nitrite Urine Bilirubin Urine Urobilinogen Imaging - Results Chest X-ray: Report Reviewed, Image Reviewed Cat Scan: Report Reviewed, Image Reviewed Ultrasound: Report Reviewed EKG: Report Reviewed, Image Reviewed Assessment/Plan 46F with multiple medical problems presents to the ED with acute on chronic abdominal pain. Problem list: Acute pancreatitis-patient meets 2 out of 3 criteria (Pain and elevated lipase) alcohol abuse/dependancy alcohol withdrawals myositis asthma interstitial lung disease HTN HLD possible CAD transaminitis hepatomegaly hepatic steatosis liver mass Plan: Admit to med surg NPO IVF pain control PRN anti-emetics PRN continue librium taper continue norvasc continue thiamine continue aspirin Protonix IVPD HSQ/SCDs hold statin given elevated LFTs trend LFTs-currently improving when compared to labs on admission to [facility] monitor Liver mass as outpatient with triple phase CT scan or MRI GI consult-Dr. Dykes contacted by ED team giancarlo PRN bronchodilators PRN Case discussed with attending Dr. Vasquez and medical unit secretary Full H&P to follow by medical unit secretary Visit type - Emergency Visit Emergency Visit: Yes ED Registration Date: 06/02/17 Care time: The patient presented to the Emergency Department on the above date and was hospitalized for further evaluation of their emergent condition. - New Patient This patient is new to me today: Yes Date on this admission: 06/02/17 - Critical Care Critical Care patient: No
[2017-06-02] MEDS ORDERED: chlordiazePOXIDE 5 MG CAPSULE ONE (18:25)
--- NOTE | 2017-06-02 18:50 | PN ---
Teaching Attending Note Name of Resident: Reynaldo Spain ATTENDING PHYSICIAN STATEMENT I saw and evaluated the patient. I reviewed the resident's note and discussed the case with the resident. I agree with the resident's findings and plan as documented. SUBJECTIVE: Patient presented with Mid-epigastric pain given pain medication which relieved her pain, requesting food. OBJECTIVE: Vital Signs Temperature 98.4 F 06/02/17 18:17 Pulse Rate 78 06/02/17 18:17 Respiratory Rate 18 06/02/17 18:17 Blood Pressure 134/89 06/02/17 18:17 O2 Sat by Pulse Oximetry (%) 98 06/02/17 18:17 CBCD WBC 4.0 K/mm3 (4.0-10.0) 06/02/17 11:00 RBC 3.66 M/mm3 (3.60-5.2) 06/02/17 11:00 Hgb 12.0 GM/dL (10.7-15.3) 06/02/17 11:00 Hct 36.5 % (32.4-45.2) 06/02/17 11:00 MCV 99.7 fl (80-96) H 06/02/17 11:00 MCHC 32.9 g/dl (32.0-36.0) 06/02/17 11:00 RDW 16.4 % (11.6-15.6) H 06/02/17 11:00 Plt Count 203 K/MM3 (134-434) 06/02/17 11:00 MPV 9.2 fl (7.5-11.1) 06/02/17 11:00 CMP Sodium 136 mmol/L (136-145) 06/02/17 13:17 Potassium 3.8 mmol/L (3.5-5.1) 06/02/17 13:17 Chloride 95 mmol/L (98-107) L 06/02/17 13:17 Carbon Dioxide 30 mmol/L (21-32) 06/02/17 13:17 Anion Gap 11 (8-16) 06/02/17 13:17 BUN 4 mg/dL (7-18) L 06/02/17 13:17 Creatinine 0.6 mg/dL (0.55-1.02) 06/02/17 13:17 Creat Clearance w eGFR > 60 (>60) 06/02/17 13:17 Random Glucose 120 mg/dL (74-106) H 06/02/17 13:17 Calcium 9.8 mg/dL (8.5-10.1) 06/02/17 13:17 Total Bilirubin 1.3 mg/dL (0.2-1.0) H D 06/02/17 13:17 AST 235 U/L (15-37) H D 06/02/17 13:17 ALT 82 U/L (12-78) H D 06/02/17 13:17 Alkaline Phosphatase 169 U/L (45-117) H 06/02/17 13:17 Total Protein 7.3 g/dl (6.4-8.2) 06/02/17 13:17 Albumin 3.9 g/dl (3.4-5.0) 06/02/17 13:17 CARDIAC ENZYMES Creatine Kinase 99 IU/L (26-192) 06/02/17 13:17 Troponin I < 0.02 ng/ml (0.00-0.05) 06/02/17 13:17 Current Medications Generic Name Dose Route Start Last Admin Trade Name Freq PRN Reason Stop Dose Admin Acetaminophen 650 mg 06/02/17 17:59 Tylenol - PO Q4H PRN FEVER Albuterol Sulfate 2 puff 06/02/17 17:59 Ventolin Hfa Inhaler - IH QID PRN WHEEZING Amlodipine Besylate 10 mg 06/03/17 10:00 Norvasc - PO DAILY [facility] Aspirin 81 mg 06/03/17 10:00 Asa - PO DAILY [facility] Chlordiazepoxide HCl 25 mg 06/02/17 17:51 Librium - PO Q4H PRN Chlordiazepoxide HCl 15 mg 06/02/17 18:00 06/02/17 18:18 Librium - PO 06/03/17 12:01 15 mg Q6HPO OCTAVIO Administration Chlordiazepoxide HCl 10 mg 06/03/17 18:00 Librium - PO 06/04/17 12:01 Q6HPO OCTAVIO Eucalyptus/Menthol/Phenol/Sorbitol 1 each 06/02/17 17:59 Cepastat Lozenge - MM Q4H PRN SORE THROAT Heparin Sodium (Porcine) 5,000 unit 06/02/17 22:00 Heparin - SQ TID OCTAVIO Sodium Chloride 1,000 mls @ 125 mls/hr 06/02/17 18:00 06/02/17 18:10 Normal Saline - IV 125 mls/hr ASDIR OCTAVIO Administration Pantoprazole Sodium 40 mg/ 100 mls @ 200 mls/hr 06/03/17 10:00 Sodium Chloride IVPB DAILY OCTAVIO Morphine Sulfate 2 mg 06/02/17 17:53 Morphine Injection - IVPUSH Q4H PRN PAIN Thiamine HCl 100 mg 06/02/17 22:00 Vitamin B1 - PO HS OCTAVIO PE: abdomen: midepigastic mild tenderness. rest of physical exam by the resident's note. ASSESSMENT AND PLAN: Patient is a 46F PMHx of EtOH abuse, HTN, HLD, myositis, came in from [facility] for having a midepigastric pain radiating to the back . # Acute Pancreatitis on IVF, morphine for pain, npo, GI consult Aurback. DVTPx: Heparin
[2017-06-02 20:30] VITALS: BP 114/74; PULSE 86; BMI 38.4
[2017-06-02] MEDS ORDERED: THIAMINE HCL 100 MG TABLET (FP) PO SCH (22:00)
[2017-06-02] MEDS ORDERED: HEPARIN NA (PORCINE) 5,000 UNITS/ML 1ML VIAL SQ SCH (22:00)
[2017-06-02] MEDS ORDERED: ATORVASTATIN CA 10 MG TABLET (FP) PO SCH (22:00)
--- NOTE | 2017-06-02 22:22 | HP ---
CHIEF COMPLAINT: PCP: N/A HISTORY OF PRESENT ILLNESS: Patient is a 46 yo female with a past medical history of alcohol abuse, HLD, HTN, myostitis, and possible interstitial lung disease (told by her doctor) presented to ED from [facility] with 12/10, intense , radiating to the back (left flank>right), throbbing epigastric abdominal pain that started this morning. She said she started feeling the pain last night before she slept. Patient said the pain started around 4 months ago and is intermittent with today being more intense than usual. Nothing alleviates it and nothing makes it worse. She also had nonbloody, nonbilious, clear vomiting that started this morning with decreased appetite. Patient denies headache, edema, nausea, fevers, rash, cough, sob, chest pain, diarrhea and urinary symptoms. LMP was 1 year ago. ER course was notable for: (1) CXR (2) Liver U/S (3)Abdominal CT Recent Travel: none PAST MEDICAL HISTORY: ETOH abuse, HTN, HLD, Myostitis, ILD, Asthma, Anemia PAST SURGICAL HISTORY: Gastric bypass (2009) Social History: Smoking: denies Alcohol: 1 L of Vodka per day Drugs: denies Family History: Allergies No Known Allergies Allergy (Verified 05/31/17 13:26) HOME MEDICATIONS: Home Medications Medication Instructions Recorded Albuterol Sulfate Inhaler - 1 - 2 inh PO QID PRN 05/31/17 [Ventolin Hfa Inhaler -] Amlodipine Besylate [Norvasc -] 10 mg PO DAILY 05/31/17 Aspirin [ASA -] 81 mg PO DAILY 05/31/17 Atorvastatin Ca [Lipitor] 10 mg PO DAILY 05/31/17 Vit B1/B2/B6/FA/Mecobalamin 1 each PO DAILY 05/31/17 [Methaver 109 mg Capsule] Acetaminophen [Tylenol] 650 mg PO PRN PRN 06/02/17 Amlodipine Besylate [Norvasc -] 10 mg PO DAILY 06/02/17 Chlordiazepoxide [Librium -] 10 mg PO Q6H 06/02/17 Chlordiazepoxide [Librium -] 15 mg PO Q6H 06/02/17 Chlordiazepoxide [Librium -] 25 mg PO PRN PRN 06/02/17 Chlordiazepoxide [Librium -] 25 mg PO Q6H 06/02/17 Chlordiazepoxide [Librium -] 50 mg PO Q6H 06/02/17 Dextromethorphan HBr [Robitussin] 10 ml PO PRN PRN 06/02/17 Diphenhydramine [Benadryl -] 50 mg PO PRN 06/02/17 Hydroxyzine Pamoate [Vistaril -] 50 mg PO PRN 06/02/17 Ibuprofen [Motrin -] 400 mg PO Q4HWA PRN 06/02/17 Loperamide HCl [Imodium -] 4 mg PO PRN PRN 06/02/17 Mag Hydrox/Al Hydrox/Simeth 30 ml PO Q6H PRN 06/02/17 [Mylanta *Suspension*] Magnesium Citrate [Citroma] 300 ml PO PRN PRN 06/02/17 Menthol/Phenol [Cepastat Lozenge -] 1 each MM PRN 06/02/17 Pantoprazole Sodium [Protonix] 40 mg PO DAILY 06/02/17 Vit Calc,Iron,Folic 1 each PO DAILY 06/02/17 [ Vitamins] REVIEW OF SYSTEMS CONSTITUTIONAL: Absent: fever, chills, diaphoresis, generalized weakness, malaise, loss of appetite, weight change HEENT: Absent: rhinorrhea, nasal congestion, throat pain, throat swelling, difficulty swallowing, mouth swelling, ear pain, eye pain, visual changes CARDIOVASCULAR: Absent: chest pain, syncope, palpitations, irregular heart rate, lightheadedness , peripheral edema RESPIRATORY: Absent: cough, shortness of breath, dyspnea with exertion, orthopnea, wheezing, stridor, hemoptysis GASTROINTESTINAL: abdominal pain, vomiting Absent: abdominal distension, nausea, diarrhea, constipation, melena, hematochezia GENITOURINARY: Absent: dysuria, frequency, urgency, hesitancy, hematuria, flank pain, genital pain MUSCULOSKELETAL: Absent: myalgia, arthralgia, joint swelling, back pain, neck pain SKIN: Absent: rash, itching, pallor HEMATOLOGIC/IMMUNOLOGIC: Absent: easy bleeding, easy bruising, lymphadenopathy, frequent infections ENDOCRINE: Absent: unexplained weight gain, unexplained weight loss, heat intolerance, cold intolerance NEUROLOGIC: Absent: headache, focal weakness or paresthesias, dizziness, unsteady gait, seizure, mental status changes, bladder or bowel incontinence PSYCHIATRIC: Absent: anxiety, depression, suicidal or homicidal ideation, hallucinations. PHYSICAL EXAMINATION Vital Signs - 24 hr 06/02/17 06/02/17 18:17 20:15 Temperature 98.4 F 98.4 F Pulse Rate 86 Pulse Rate [ 78 Left Apical] Respiratory 18 16 Rate Blood Pressure 114/74 Blood Pressure 134/89 [Left Arm] O2 Sat by Pulse 98 98 Oximetry (%) GENERAL: Awake, alert, and fully oriented, in no acute distress. HEAD: Normal with no signs of trauma. EYES: Pupils equal, round and reactive to light, extraocular movements intact, sclera anicteric, conjunctiva clear. No lid lag. EARS, NOSE, THROAT: oropharynx clear without exudates. Moist mucous membranes. NECK: Normal range of motion, supple without lymphadenopathy, JVD, or masses. LUNGS: Breath sounds equal, clear to auscultation bilaterally. No wheezes, and no crackles. No accessory muscle use. HEART: Regular rate and rhythm, normal S1 and S2 without murmur, rub or gallop. ABDOMEN: Soft,tender to palpation in all quadrants. not distended, normoactive bowel sounds MUSCULOSKELETAL: Normal range of motion at all joints. No bony deformities or tenderness. No CVA tenderness. UPPER EXTREMITIES: 2+ pulses, warm, well-perfused. No cyanosis. No clubbing. No peripheral edema. LOWER EXTREMITIES: 2+ pulses, warm, well-perfused. No calf tenderness. No peripheral edema. NEUROLOGICAL: Cranial nerves II-XII intact. Normal speech. Normal gait. PSYCHIATRIC: Cooperative. Good eye contact. Appropriate mood and affect. ASSESSMENT/PLAN: Patient is a 46 yo female with a past medical history of alcohol abuse, HLD, HTN , myostitis, presented to ED from [facility] with 12/, intense, radiating to the back (left flank>right), throbbing epigastric abdominal pain and was found to have acute pancreatitis. #Acute pancreatitis -elevated Lipase (4618). Will monitor -History of EtOH abuse -NPO -Continue IV fluids -pain control with morphine 1g q6 -Will follow labs in am #Alcohol abuse - Started detox 05/31 -On librium taper -continue thiamine #Transaminitis: -Trend LFTs- will follow tomorrow -LFTs improving compared to labs in [facility] admission. -Hold statins -Gi Consult- Dr. Dykes - [address] F/U outpatient -Severe hepatic steatotis on abdominal CT scan -1.1 X 1.[address] Triple phase contrast CT recommended outpatient. #HTN -continue Norvasc #Asthma -ventolin prn -bronchodilators PRN #FEN -IV Fluids, NS 125cc/hour -Electrolytes WNL -NPO #DVT PPX -Aspirin -Heparin 5000SQ -GI Prophylaxis
--- NOTE | 2017-06-03 08:39 | DS ---
Physical Exam: SUBJECTIVE: Patient seen and examined. Patient offered no complaints and said she wanted to leave. She said she was far from home and wanted to see her family. OBJECTIVE: Vital Signs Period Temp Pulse Resp BP Sys/Suh Pulse Ox Last 24 Hr 98.4 F-98.4 F 78-86 16-18 114-134/74-89 98-98 PHYSICAL EXAM GENERAL: The patient is awake, alert, and fully oriented, in no acute distress. HEAD: Normal with no signs of trauma. EYES: PERRL, extraocular movements intact, sclera anicteric, conjunctiva clear. ENT: Ears normal, nares patent, oropharynx clear without exudates, moist mucous membranes. NECK: Trachea midline, full range of motion, supple. LUNGS: Breath sounds equal, clear to auscultation bilaterally, no wheezes, no crackles, no accessory muscle use. HEART: Regular rate and rhythm, S1, S2 without murmur, rub or gallop. ABDOMEN: Soft, nontender, nondistended, normoactive bowel sounds, no guarding, no rebound, no hepatosplenomegaly, no masses. EXTREMITIES: 2+ pulses, warm, well-perfused, no edema. NEUROLOGICAL: Cranial nerves II through XII grossly intact. Normal speech, gait not observed. PSYCH: Normal mood, normal affect. SKIN: Warm, dry, normal turgor, no rashes or lesions noted. LABS HOSPITAL COURSE: Date of Admission:06/02/17 Patient is a 46 yo female with a past medical history of alcohol abuse, HLD, HTN , myostitis, presented to ED from [facility] (ETOH detox started 05/31) with epigastric and diffuse abdominal pain and was found to have acute pancreatitis. GI was consulted. Patient was being further evaluated, put NPO, and was given IV fluids, but decided to leave against medical advice. She said she wanted to see her family and that she was far away from them. I had a long discussion with the patient about the risks of leaving and also was educated on the risks and complications of her condition, but patient made a final decision to leave AMA. Date of Discharge: 06/03/17 Minutes to complete discharge: 30 Discharge Summary Reason For Visit: PANCREATITIS Current Active Problems Alcohol induced insomnia (Acute) Elevated LFTs (Acute) Epigastric abdominal pain (Acute) Obesity (Acute) Pancreatitis (Acute) Alcohol dependence with uncomplicated withdrawal (Chronic) Asthma (Chronic) H/O gastric bypass (Chronic) Hyperlipidemia (Chronic) Hypertension (Chronic) Condition: Stable - Instructions Disposition: AGAINST MEDICAL ADVICE - Home Medications Comprehensive Discharge Medication List: Ambulatory Orders Albuterol Sulfate Inhaler - [Ventolin Hfa Inhaler -] 1 - 2 inh PO QID PRN Amlodipine Besylate [Norvasc -] 10 mg PO DAILY 05/31/17 Aspirin [ASA -] 81 mg PO DAILY 05/31/17 Atorvastatin Ca [Lipitor] 10 mg PO DAILY 05/31/17 Vit B1/B2/B6/FA/Mecobalamin [Methaver 109 mg Capsule] 1 each PO DAILY 05/31/17 Acetaminophen [Tylenol] 650 mg PO PRN PRN 06/02/17 Amlodipine Besylate [Norvasc -] 10 mg PO DAILY 06/02/17 Chlordiazepoxide [Librium -] 10 mg PO Q6H 06/02/17 Chlordiazepoxide [Librium -] 15 mg PO Q6H 06/02/17 Chlordiazepoxide [Librium -] 25 mg PO PRN PRN 06/02/17 Chlordiazepoxide [Librium -] 25 mg PO Q6H 06/02/17 Chlordiazepoxide [Librium -] 50 mg PO Q6H 06/02/17 Dextromethorphan HBr [Robitussin] 10 ml PO PRN PRN 06/02/17 Diphenhydramine [Benadryl -] 50 mg PO PRN 06/02/17 Hydroxyzine Pamoate [Vistaril -] 50 mg PO PRN 06/02/17 Ibuprofen [Motrin -] 400 mg PO Q4HWA PRN 06/02/17 Loperamide HCl [Imodium -] 4 mg PO PRN PRN 06/02/17 Mag Hydrox/Al Hydrox/Simeth [Mylanta *Suspension*] 30 ml PO Q6H PRN 06/02/17 Magnesium Citrate [Citroma] 300 ml PO PRN PRN 06/02/17 Menthol/Phenol [Cepastat Lozenge -] 1 each MM PRN 06/02/17 Pantoprazole Sodium [Protonix] 40 mg PO DAILY 06/02/17 Vit Calc,Iron,Folic [ Vitamins] 1 each PO DAILY 06/02/17
[2017-06-03] MEDS ORDERED: ASPIRIN 81 MG CHEWABLE TABLETS PO SCH (10:00)
[2017-06-03] MEDS ORDERED: PANTOPRAZOLE SODIUM 40 MG in SODIUM CHLORIDE 100 ML IVPB SCH (10:00)
[2017-06-03] MEDS ORDERED: amLODIPine BESYLATE 10 MG TABLET (FP) PO SCH (10:00)
[2017-06-03] MEDS ORDERED: chlordiazePOXIDE 5 MG CAPSULE PO SCH (18:00)
--- NOTE | 2017-06-05 16:59 | EKG ---
Test Reason : Blood Pressure : / mmHG Vent. Rate : 072 BPM Atrial Rate : 072 BPM P-R Int : 130 ms QRS Dur : 084 ms QT Int : 430 ms P-R-T Axes : 037 006 004 degrees QTc Int : 470 ms NORMAL SINUS RHYTHM MINIMAL VOLTAGE CRITERIA FOR LVH, MAY BE NORMAL VARIANT BORDERLINE ECG WHEN COMPARED WITH ECG OF 31-MAY-2017 21:50, NO SIGNIFICANT CHANGE WAS FOUND Confirmed by STEPHEN GRACE, WARREN ([id number]) on 06/05/2017 4:59:03 PM Referred By: Confirmed By:WARREN MITCHELL MD
== END 2017-06-03 05:45 | disposition left against medical advice (07) | DRG 282 ==
LOC: JER 10:14 → JERBED 17:27 → J5S 18:50
PROVIDERS: ADMIT Internal Medicine; ATTEND Internal Medicine
DX: K85.90 Acute pancreatitis without necrosis or infection, unspecified (principal); J84.9 Interstitial pulmonary disease, unspecified; I10 Essential (primary) hypertension; R16.0 Hepatomegaly, not elsewhere classified; K76.0 Fatty (change of) liver, not elsewhere classified; F10.230 Alcohol dependence with withdrawal, uncomplicated; E78.5 Hyperlipidemia, unspecified; J45.909 Unspecified asthma, uncomplicated; M60.9 Myositis, unspecified; D64.9 Anemia, unspecified; R74.0 Nonspecific elevation of levels of transaminase and lactic acid dehydrogenase [LDH]; E66.9 Obesity, unspecified; Z98.84 Bariatric surgery status
CPT/HCPCS: 36415; 71020-TC; 74177-TC; 76705-TC; 80048; 80053; 81003; 83605; 83690; 84484; 84703; 85025; 87086; 93005; 93010; 99283-25; J1644; Q9967